=== PATIENT | male | born 1970 | race Caucasian/White ===

== ENCOUNTER 2017-08-23 20:31 | Emergency (ER) | payer OTHER ==
[~2017-08-23] VITALS: Ht 190.5 cm; Wt 102.1 kg
[2017-08-23 20:34] VITALS: TEMP 36.7; Ht 190.5 cm; Wt 102.1 kg
[2017-08-23] MEDS ORDERED: MULT-506 PO (21:27)
[2017-08-23] MEDS ORDERED: IBUP-103 PO (21:27)
[2017-08-23] MEDS ORDERED: DICL75TA2 PO (21:28)
[2017-08-23] MEDS ORDERED: CYCLOBENZAPRINE HCL 10 MG TAB PO STA (21:30)
[2017-08-23] MEDS ORDERED: GABAPENTIN 600 MG TAB PO STA (21:30)
[2017-08-23] MEDS ORDERED: NAPROXEN 250 MG TAB PO STA (21:30)
--- NOTE | 2017-08-23 21:30 | EMERGENCY ROOM VISIT NOTE ---
History First contact with patient: 20:58 Chief Complaint: LEG PAIN,LEG INJURY Stated Complaint: EXTREME BACK LEG PAIN, NUMBNESS IN FOOT History of Present Illness The patient is a 46 year old male who presents to the Emergency Room with complaints of back pain Patient had the sudden onset of back pain 3 weeks ago when getting out of his car. He describes it as a sharp/shooting pain that radiated from his left upper buttocks to his left calf. Movement makes it worse and is worse when rolling onto his back. He has been taking advil which has not been helping. He rates the pain as 3-8/10 in severity. He denies any red flag symptoms such as urinary/bladder incontinence, night sweats, or leg weakness Of note he had an MRI 3 years ago which showed a herniated disc at L5-S1. He had received 3 steroid injections for symptomatic relief and saw an Orthopedic surgeon named Dr. Cottrell in [place]. He has also had an L3 disectomy in his 20's for a herniated disc Review of Systems CONSTITUTIONAL: No fever, chills, sweats or night sweats. No recent infections. No weight loss or weight gain. NEUROLOGIC: No headaches, dizziness or syncopal episodes. CARDIOVASCULAR: No chest pain or palpitations. RESPIRATORY: No SOB, dyspnea, cough or hemoptysis. GASTROINTESTINAL: No nausea, vomiting, diarrhea, constipation, reflux, melena or hematochezia. GENITOURINARY: No dysuria, frequency, urgency, incontinence or hematuria. MUSCULOSKELETAL: back pain, left calf pain and decreased sensation in left foot SKIN: No rashes or skin lesions. No hair loss or nail changes. HEMATOLOGIC: No bleeding or abnormal bruising Past Medical/Surgical History L3 herniated discectomy Social History Smoking Status: Never Smoker Alcohol Use: occasionally Marital Status: in relationship Occupation Status: unemployed Current/Historical Medications Scheduled Multivitamin (Multivitamin), 1 TAB PO DAILY Scheduled PRN Diclofenac Sodium (Voltaren), 75 MG PO BID PRN for Pain Ibuprofen Tab (Advil), 800 MG PO Q8 PRN for Pain Allergies NKDA Physical Exam Vital Signs Date Time Temp Pulse Resp B/P (MAP) Pulse Ox O2 Delivery O2 Flow Rate FiO2 08/23/17 21:40 86 20 162/119 97 Room Air 08/23/17 20:34 36.7 86 18 159/115 100 Room Air Physical Exam Heart: Regular rate and rhythm. There is a normal S1 and S2 with no murmurs, clicks, or gallops appreciated. Lungs: Clear to auscultation bilaterally with no wheezes, rales, or rhonchi. Abdomen: Soft, completely nontender, nondistended, with good bowel sounds. There are no palpable pulsatile masses or hepatosplenomegaly. There is no guarding, rigidity, or rebound noted. Extremities: No evidence of cyanosis, clubbing, or edema. There are easily palpable peripheral pulses. Neuro:The patient is awake and alert, oriented to day, time, and place. Muscle strength is 5/5 in all 4 extremities. The patient has equal jinrikisha driver strength and equal pedal push and pull. Decreased sensation along the L4 dermatome in the the left leg, tibial reflexes intact bilaterally Back: pain to palpation along the L4 spinous process, no paraspinal tenderness, no erythema or swelling along spine Medical Decision & Procedures Medications Administered Medications (Trade) Dose Ordered Sig/Trinity Route Start Time Stop Time Status Last Admin Dose Admin Cyclobenzaprine HCl (Flexeril Tab) 10 mg NOW STAT PO 08/23/17 21:30 08/23/17 21:39 DC 08/23/17 21:56 10 MG Naproxen (Naprosyn Tab) 250 mg NOW STAT PO 08/23/17 21:30 08/23/17 21:39 DC 08/23/17 21:56 250 MG Gabapentin (Neurontin Tab) 600 mg NOW STAT PO 08/23/17 21:30 08/23/17 21:40 DC 08/23/17 21:56 600 MG Miscellaneous Information (Patient'S Allergy Info Needs Entered) 1 ea NOW STAT N/A 08/23/17 21:34 08/23/17 21:35 DC 08/23/17 21:39 1 EA ED Course 2109 - patient was seen at the bedside and a full history and examination were performed 2134 - case was discussed with Dr. Carbajal and Lumbar xray was ordered. Patient was given flexeril, naproxen and gabapentin. Patient has an appointment with [facility] but are unsure if there insurance will cover the visit. 2199 - I discussed the case with Dr. Carbajal and she agreed to take over management of the patients care Medical Decision The patient's history was concerning for back pain. Differential diagnosis: Etiologies such as musculoskeletal, disc herniation, fracture, aortic disease, metastatic disease, cord compression, discitis, infection, renal colic, gastrointestinal, acute exacerbation of chronic back pain, sciatica, cauda equina, as well as others were entertained. Impression Primary Impression: Sciatic hernia Departure Information Referrals No Doctor, Assigned (PCP) Patient Instructions My [facility]
[2017-08-23] MEDS ORDERED: PATIENT'S ALLERGY INFO NEEDS ENTERED STA (21:34)
--- NOTE | 2017-08-23 22:21 | DIAGNOSTIC IMAGING REPORT ---
L-SPINE MIN 4 VIEWS ROUTINE CLINICAL HISTORY: Back pain with left leg radiculopathy. COMPARISON STUDY: No previous studies for comparison. FINDINGS: No acute fractures or subluxations are visualized. No destructive lesions are evident. There are mild multilevel degenerative changes present. IMPRESSION: Mild degenerative change. No fractures or subluxations identified. Electronically signed by: Robert Hernandez M.D. 08/23/2017 10:20 PM Dictated Date/Time: 08/23/2017 10:19 PM
[2017-08-23] MEDS ORDERED: MoRPHine SULFATE 10 MG/ML CARP/VIAL IM STA (23:32)
--- NOTE | 2017-08-23 23:38 | EMERGENCY ROOM VISIT NOTE ---
History First contact with patient: 20:58 Chief Complaint: LEG PAIN,LEG INJURY Stated Complaint: EXTREME BACK LEG PAIN, NUMBNESS IN FOOT History of Present Illness The patient is a 46 year old male who presents to the Emergency Room with complaints of low back pain radiating down the left leg. Patient with prior history of low back surgery in his early 20s, followed by intermittent exacerbations with radiation down the right leg. Patient states symptoms began 3 weeks ago. Denies any change in activity or trauma. He denies any incontinence or saddle anesthesia. Patient states he has numbness to his foot and toes on the left. Patient has been walking however painfully. Was using [id number] Advil. Patient recently moved here from [place], has not established a local family doctor. Patient contacted his family doctor in [place] as well as his prior spine surgeon or unable to see him without a visit there. No swelling to the leg or joints. Denies fever/chills. Review of Systems See HPI for pertinent positives & negatives. A total of 10 systems reviewed and were otherwise negative. Social History Smoking Status: Never Smoker Alcohol Use: occasionally Marital Status: in relationship Occupation Status: unemployed Current/Historical Medications Scheduled Gabapentin (Neurontin), 100 MG PO Q8 Methylprednisolone (Medrol Dosepak), 1 PKT PO UD Multivitamin (Multivitamin), 1 TAB PO DAILY Scheduled PRN Cyclobenzaprine Hcl (Flexeril), 10 MG PO TID PRN for Muscle Spasms Diclofenac Sodium (Voltaren), 75 MG PO BID PRN for Pain Ibuprofen Tab (Advil), 800 MG PO Q8 PRN for Pain Oxycodone/Acetaminophen 5MG/325MG (Percocet 5MG/325MG), 1-2 TABS PO Q4H PRN for Pain Physical Exam Vital Signs Date Time Temp Pulse Resp B/P (MAP) Pulse Ox O2 Delivery O2 Flow Rate FiO2 08/24/17 01:43 73 18 153/96 95 Room Air 08/23/17 23:49 68 18 167/109 94 Room Air 08/23/17 21:40 86 20 162/119 97 Room Air 08/23/17 20:34 36.7 86 18 159/115 100 Room Air Physical Exam GENERAL: alert, well appearing, well nourished, no distress, non-toxic LUNGS: Clear to auscultation. Normal chest wall mechanics HEART: no murmurs, S1 normal and S2 normal ABDOMEN: abdomen soft, non-tender, normo-active bowel sounds, no masses, no rebound or guarding. BACK: Back is symmetrical on inspection and there is no deformity, no midline tenderness, no CVA tenderness. SKIN: no rashes and no bruising UPPER EXTREMITIES: upper extremities are grossly normal. LOWER EXTREMITIES: No pitting edema. NEURO EXAM: Normal sensorium, cranial nerves II-XII grossly intact, normal speech, no gross weakness of arms, no gross weakness of legs. Gross sensation intact. Medical Decision & Procedures ER Provider Diagnostic Interpretation: MRI L-spine: Comparison: Lumbar spine radiographs 08/23/17 L3-L4, minimal posterior disc bulge and mild facet arthropathy/segments hypertrophy without significant canal or foraminal stenosis. Annular fissure. Mild disc desiccation. L4-L5, right paracentral to subarticular disc extrusion causes moderate to severe narrowing of the right lateral recess with displacement and possible compression of the traversing right L5 nerve root. Mild disc desiccation and height loss. Mild facet arthropathy. L5-S1, right subarticular disc/osteophyte complex causes mild right lateral recess narrowing, abutting but not compressing the traversing right S1 nerve root. Mild facet arthropathy. Radiologist: Leo Dougherty M.D. Medications Administered Medications (Trade) Dose Ordered Sig/Trinity Route Start Time Stop Time Status Last Admin Dose Admin Cyclobenzaprine HCl (Flexeril Tab) 10 mg NOW STAT PO 08/23/17 21:30 08/23/17 21:39 DC 08/23/17 21:56 10 MG Naproxen (Naprosyn Tab) 250 mg NOW STAT PO 08/23/17 21:30 08/23/17 21:39 DC 08/23/17 21:56 250 MG Gabapentin (Neurontin Tab) 600 mg NOW STAT PO 08/23/17 21:30 08/23/17 21:40 DC 08/23/17 21:56 600 MG Miscellaneous Information (Patient'S Allergy Info Needs Entered) 1 ea NOW STAT N/A 08/23/17 21:34 08/23/17 21:35 DC 08/23/17 21:39 1 EA ED Course 2245: Pt updated on results. States no improvement since meds. 0140: Updated patient all results, need for close follow-up with a workforce development specialist, medications, he verbalized understanding. Patient states pain mildly improved here with medications. Medical Decision Differential diagnosis: Etiologies such as musculoskeletal, disc herniation, fracture, aortic disease, metastatic disease, cord compression, discitis, infection, renal colic, gastrointestinal, acute exacerbation of chronic back pain, sciatica, cauda equina, as well as others were entertained. Pt well appearing here despite 3 weeks of pain. No acute sx to suggest cauda equina. Pain controlled here with meds. Discussed need for close f/u given findings on MRI. Discussed all results with patient. Discussed sx to watch/ return for, he verbalized understanding, was comfortable with plan, all questions answered at bedside, pt well appearing at discharge, ambulating with a steady gait. Medication Reconcilliation Current Medication List: was personally reviewed by me Blood Pressure Screening Patient's blood pressure: Elevated blood pressure Blood pressure disposition: Elevated BP felt to be situational Impression Primary Impression: Low back pain Additional Impressions: Lumbar radiculopathy Disc herniation Departure Information Dispostion Home / Self-Care Condition GOOD Prescriptions Methylprednisolone (MEDROL DOSEPAK) 4 Mg Puma 1 PKT PO UD for 6 Days, #1 PKT Prov: Carli Carbajal, DO 08/24/17 Cyclobenzaprine Hcl (FLEXERIL) 10 Mg Tab 10 MG PO TID Y for Muscle Spasms, #15 TAB Prov: Carli Carbajal, DO 08/24/17 Oxycodone/Acetaminophen 5MG/325MG (PERCOCET 5MG/325MG) Tab 1-2 TABS PO Q4H Y for Pain, #14 TAB Prov: Carli Carbajal, DO 08/24/17 Gabapentin (Neurontin) 100 Mg Cap 100 MG PO Q8 for Pain, #30 CAP Prov: Carli Carbajal, DO 08/24/17 Referrals No Doctor, Assigned (PCP) Patient Instructions My [facility] Additional Instructions The sample case porter will attempt to make an appointment with one of the local workforce development specialist and will call you with that appointment date and time. The names of the local workforce development specialist are provided for you susan. Please also try to establish a local family doctor. Please use the medications listed as prescribed. Do not take the muscle relaxer or narcotic pain medication and drive or drink alcohol. Please also monitor for constipation while taking narcotic pain medication as this is a common side effect. Please do not take the muscle relaxer and narcotic pain medication at the same time. If you have worsening pain, increased weakness, or unable to walk, have worsening numbness or tingling, develop fevers or chills, develop numbness or tingling around your genital region, have difficulty controlling your bowel or bladder functions, or you have any other new or concerning symptoms, please return the emergency room. Problem Qualifiers Primary Impression: Low back pain Chronicity: acute Back pain laterality: midline Sciatica presence: with sciatica Sciatica laterality: sciatica of left side Qualified Codes: M54.42 - Lumbago with sciatica, left side Additional Impressions: Disc herniation Spinal region: lumbar Qualified Codes: M51.26 - Other intervertebral disc displacement, lumbar region
[2017-08-24] MEDS ORDERED: OXYCODONE/ACETAMINOPHEN 5-325 TAB PO ONE (01:15)
[2017-08-24 01:43] VITALS: BP 153/96; PULSE 73; O2SAT 95
[2017-08-24] MEDS ORDERED: OXYC-57 PO (01:44)
[2017-08-24] MEDS ORDERED: METH4PAK PO (01:44)
[2017-08-24] MEDS ORDERED: CYCL10TA6 PO (01:44)
[2017-08-24] MEDS ORDERED: NRN/100 PO (01:44)
--- NOTE | 2017-08-24 08:03 | DIAGNOSTIC IMAGING REPORT ---
LUMBAR SPINE W/O CONTRAST CLINICAL HISTORY: 46 years-old Male with paresthesias, pain, hx herniation. Acute pain of the left lower leg with numbness of the left foot. History of prior back surgery at L3. COMPARISON: Lumbar spine radiographs 08/23/2017. TECHNIQUE: Multiplanar, multi sequence MRI of the lumbar spine was performed without intravenous contrast. FINDINGS: No focal bone marrow edema, acute fracture or subluxation. Conus medullaris terminates at the T12-L1 level. Signal within the cord is within normal limits. The cauda equina appear to be within normal limits. T12-L1: No central canal or neural foraminal stenosis. L1-L2: No central canal or neural foraminal stenosis. L2-L3: No central canal or neural foraminal stenosis. L3-L4: Mild intervertebral disc space narrowing with broad-based posterior disc bulge, mild facet arthrosis and ligament of flavum thickening. No significant central canal or foraminal narrowing. L4-L5: Mild intervertebral disc space narrowing with posterior spondylitic spurring, mild facet arthrosis and ligamentum flavum thickening. There is a right paracentral/right lateral recess disc extrusion which measures 1.6 cm transversely and extends 4 mm caudally which causes moderate to severe narrowing of the right lateral recess with abutment and displacement of the adjacent right L5 nerve root. Probable associated small annular fissure. These findings cause no significant foraminal or central canal narrowing. L5-S1: Mild posterior intervertebral disc space narrowing with posterior spondylitic spurring and broad-based posterior disc bulge favoring the right paracentral region, right lateral recess and right foramen causing mild right lateral recess and mild right foraminal narrowing. No significant central canal or left foraminal stenosis. These findings cause abutment without definite displacement of the right S1 nerve root. IMPRESSION: 1. At L4-L5 there is a right paracentral/right lateral recess disc extrusion which causes moderate to severe narrowing of the right lateral recess with abutment and displacement of the adjacent right L5 nerve root. 2. L5-S1 there is a broad-based posterior disc bulge favoring the right paracentral and right lateral recess region along with posterior spondylitic spurring causing mild right lateral recess and mild right foraminal narrowing. 3. No fracture or focal bone marrow edema. The above report was generated using voice recognition software. It may contain grammatical, syntax or spelling errors. Electronically signed by: Musa Albright M.D. 08/24/2017 8:02 AM Dictated Date/Time: 08/24/2017 6:48 AM
== END 2017-08-24 01:57 | disposition home or self-care (01) ==
LOC: C.EDB 20:33
DX: M54.16 Radiculopathy, lumbar region (principal); M54.5 Low back pain; M51.26 Other intervertebral disc displacement, lumbar region; M53.3 Sacrococcygeal disorders, not elsewhere classified; Z79.899 Other long term (current) drug therapy